=== PATIENT | female | born 1960 | race Caucasian/White ===

== ENCOUNTER 2018-02-04 05:39 | Inpatient (IN) ==
[2018-02-04] MEDS ORDERED: Lactated Ringers 1,000 ML PRIMARY IV ONE ×2 (05:55→09:59)
[2018-02-04] MEDS ORDERED: Clindamycin 900mg (Premix) 900 MG/50 ML BAG IV ONE ×2 (05:55→06:00)
[2018-02-04] MEDS ORDERED: LIDOCAINE W/ SODIUM BICARB 0.5 ML SYR ONE (05:55)
[2018-02-04] MEDS ORDERED: Tranexamic Acid 1,000 MG in Sodium Chloride 0.9% 100 ML IV SCH (06:00)
[2018-02-04] MEDS ORDERED: Lactated Ringers 1,000 ML PRIMARY IV SCH (06:00)
[2018-02-04] MEDS ORDERED: LIDOCAINE W/ SODIUM BICARB 0.5 ML SYR SUBD ONE (06:00)
[2018-02-04] MEDS ORDERED: Ketorolac Inj 30 MG, Morphine Inj 5 MG, BUPivacaine Inj 0.25% PF 150 MG SPLASH ONE ×3 (06:00)
[2018-02-04 06:20] LABS: BILIRUBIN,URINE NEGATIVE (NEG); CLARITY,URINE CLEAR (CLEAR); COLOR,URINE YELLOW (Y); GLUCOSE, URINE (UA) NEGATIVE (NEG); OCCULT BLOOD,URINE NEGATIVE (NEG); PROTEIN,URINE NEGATIVE (NEG); UROBILINOGEN,URINE 0.2 EU/dL (0.2)
[2018-02-04 06:21] LABS: URINE SAMPLE TYPE CLEAN CATCH URINE
[2018-02-04] MEDS ORDERED: BUPivacaine Liposome/PF (Exparel) Inj 20ml vial INFIL ONE (06:53)
[2018-02-04] MEDS ORDERED: Sodium Chloride 0.9% vial 40 ML ONE (06:53)
[2018-02-04] MEDS ORDERED: HEPARIN 10,000 UNIT/1 ML ONE (06:53)
[2018-02-04] MEDS ORDERED: Gentamicin Inj 40 MG/ML VIAL ONE (06:53)
[2018-02-04] MEDS ORDERED: IPRATROPIUM/ALBUTEROL SULFATE 3 ML NEB NEB ONE ×2 (07:05→07:08)
[2018-02-04] MEDS ORDERED: Propofol 1,000 MG/100 ML VIAL IV ONE (07:21)
[2018-02-04] MEDS ORDERED: MIDAZOLAM 5 MG/1 ML ONE (07:24)
[2018-02-04] MEDS ORDERED: MORPHINE SULFATE/PF 10 MG/10 ML AMPULE ONE (07:25)
[2018-02-04] MEDS ORDERED: Sodium Chloride 0.9% 250 ML IV ONE (07:33)
[2018-02-04] MEDS ORDERED: Sodium Chloride 0.9% 2,000 ML ONE (07:33)
[2018-02-04] MEDS ORDERED: TRANEXAMIC ACID 1,000 MG / 10 ML VIAL ONE (07:40)
--- NOTE | 2018-02-04 08:32 | CRNA.PROCE ---
Central Neuraxis Block Placemt - - Type of Block: Subarachnoid Reason for Block: Surgical Moniters Used During Block: EKG, SPO2, NIBP Sedation Used - Enter Amount Used in Comment Field: Midazolam (mg): Yes (3) Skin Prep Used: ChloroPrep Draped: No Skin Infiltration - Enter Amount Used in Comment Field: 1% Xylocaine (mL): Yes ( skinwheal) Spinal Needle Used: 22 Tabitha 80 mm Local Anesthetic - Enter Amount Used in Comment Field: 0.75 % Bupivacaine with Dextrose (ml): Yes (2ml) Additive Used - Enter Amount Used in Comment Field: Preservative Free Morphine ( mg): Yes (150mcg) Bioclusive Dressing Applied: No Anesthesia Time - Other Weight: 63.957 kg Height: 5 ft 5 in Body Mass Index (BMI): 23.4
[2018-02-04] MEDS ORDERED: PROPOFOL 10 MG/1 ML (200 MG/20 ML) VIAL IV ONE (09:44)
[2018-02-04] MEDS ORDERED: KETOROLAC 30 MG/1 ML VIAL ONE (10:45)
--- NOTE | 2018-02-04 10:46 | CRNA.PROGR ---
Anesthesia Recovery Phase I - Post Anesthesia Evaluation Patient's Condition on Arrival in Phase I: Stable Pain Level: 0
--- NOTE | 2018-02-04 10:48 | CRNA.PROGR ---
Anesthesia Time - - Start date: 02/04/18 End date: 02/04/18 - Procedure/Recovery Time Anesthesia : Time In: 07:52 Anesthesia : Time Out: 10:42 Anesthesia : Total Time: 170 - Total Anesthesia Time Total Anesthesia Time (minutes): 170 - Other Weight: 63.957 kg Height: 5 ft 5 in Body Mass Index (BMI): 23.4 Physical Status: P2 Anesthesia Type: Spinal Block
[2018-02-04] MEDS ORDERED: BISACODYL 10 MG SUPPOSITORY RECTAL PRN (11:38)
[2018-02-04] MEDS ORDERED: MAG HYDROX/AL HYDROX/SIMETH 30 ML SUSP PO PRN (11:38)
[2018-02-04] MEDS ORDERED: ACETAMINOPHEN 325 MG TABLET PO PRN (11:38)
[2018-02-04] MEDS ORDERED: ONDANSETRON 4 MG/2 ML VIAL IVP PRN (11:38)
[2018-02-04] MEDS ORDERED: diphenhydrAMINE 25 MG CAPSULE PO PRN (11:38)
[2018-02-04] MEDS ORDERED: MORPHINE SULFATE 2 MG/1 ML IVP PRN (11:38)
[2018-02-04] MEDS ORDERED: BISACODYL 5 MG TABLET PO PRN (11:38)
[2018-02-04] MEDS ORDERED: Prochlorperazine Tab 10 MG TAB PO PRN (11:38)
[2018-02-04] MEDS ORDERED: CALCIUM CARBONATE 500 MG (TUMS) CHEWABLE TABLET PO PRN (11:38)
[2018-02-04] MEDS ORDERED: Ondansetron ODT Tab 8 MG TAB PO PRN (11:38)
--- NOTE | 2018-02-04 13:00 | CONSULT ---
Consult Note - Consult Consult Date: 02/04/18 Reason for Consult: PostOp Consulation : Ortho Requesting Physician: Dr. Fernández Primary Care Provider: Yuli Parkinson - History of Present Illness History of Present Illness: This is a 57 years old female with medical history significant for history of hypertension, fibromyalgia and history of osteonecrosis of the left hip who came into the hospital to have left hip replacement and was done by Dr. Fernández. The hospitalist service were consulted for management of medical issues patient was seen postoperatively she was sleeping but arousable. She is denying complaint now. There is no hip pain, no shortness of breath and no nausea. Past Medical History Medical History: 1. Hypertension. 2. History of fibromyalgia. 3. History of ischemic necrosis of the hip Surgical History: 1. History of right hip replacement. 2. History of bilateral lower carpal tunnel release Family History: Reviewed an Not Pertinent Past Social History: She is a smoker half a pack a day, doesn't drink, smoked marijuana in the past. Tobacco Use: Current Some Day Smoker In the Past 12 Months, Have Used or Abuse Any of the Following Substance: Marijuana Alcohol Use: None Review of Systems - Review of Systems All Systems: Reviewed & No Additional Complaints Except as Stated Medication / Allergies Home Medications: Home Medications 3 Medication Instructions Recorded Confirmed Type gabapentin 300 mg capsule 300 mg PO TID 10/23/17 02/04/18 History lisinopril 20 mg tablet 20 mg PO QDAY 10/23/17 02/04/18 History lorazepam 1 mg tablet 1 mg PO .prn tab 10/23/17 02/04/18 History oxycodone-acetaminophen 10 mg-325 1 tab PO Q6H PRN tab 10/23/17 02/04/18 History mg tablet docusate sodium 100 mg capsule 100 mg PO QDAY 01/22/18 02/04/18 History famotidine 20 mg tablet 20 mg PO QDAY PRN 01/22/18 02/04/18 History Allergies/Adverse Reactions: Allergies 3 Allergy/AdvReac Type Severity Reaction Status Date / Time hydromorphone [From Dilaudid] AdvReac DYSPHORIA Verified 02/04/18 11:49 Penicillins AdvReac NOT Verified 02/04/18 11:49 APPLICABLE Exam - Vitals Vital Signs: Vital Signs Temperature 97.0 F Temperature Source Temporal Artery Scan Pulse Rate [Pulse Oximeter] 65 Pulse Rate 62 Respiratory Rate 16 Blood Pressure [Left Arm] 134/73 Blood Pressure 128/75 Pulse Ox 98 Oxygen Flow Rate 2 Oxygen Delivery Method Nasal Cannula Height 5 ft 5 in Weight 141 lb - General General Appearance: No Acute Distress, Cooperative - Head Head Exam: Normal Inspection - Eye Eye Exam: POSITIVE: Normal Appearance - ENT ENT Exam: POSITIVE: Normal Exam - Neck Neck Exam: Normal Inspection - Respiratory Respiratory Exam: POSITIVE: Clear to Auscultation - Bilaterally - Cardiovascular Cardiovascular Exam: POSITIVE: RRR - GI/Abdominal GI/Abdominal Exam: POSITIVE: Normal Bowel Sounds, Non Tender, Non Distended, Soft, No Organomegaly - Rectal Rectal Exam: POSITIVE: Deferred - External Exam: POSITIVE: Deferred Exam: POSITIVE: Deferred - Extremities Additional Extremities Exam Details: Dressing applied left hip. No edema. - Back Back Exam: POSITIVE: Normal Inspection - Neurological Neurological Exam: POSITIVE: Alert, Oriented x 3, CN II-XII Intact - Psychiatric Psychiatric Exam: POSITIVE: Normal Affect Assessment and Plan - Patient Problems (1) Status post left hip replacement Current Visit: Yes Status: Acute Comment: Pain medications were written by Dr. Fernández. For DVT prophylaxis he put her on aspirin. He consulted PT and OT. Code(s): Z96.642 - Presence of left artificial hip joint (2) Hypertension Current Visit: Yes Status: Acute Comment: She took her lisinopril today we'll see what her blood pressure tomorrow and then will decide about restarting it. Code(s): I10 - Essential (primary) hypertension (3) Fibromyalgia Current Visit: Yes Status: Acute Comment: She is on gabapentin continue Code(s): M79.7 - Fibromyalgia
--- NOTE | 2018-02-04 13:16 | DI ---
XR HIP COMPLETE MIN 2VW U/L,02/04/2018 10:36 AM: Clinical History: Left total hip arthroplasty for avascular necrosis. Previous Exam: None at this facility. Findings: A single frontal radiograph of the pelvis is obtained as well as a frontal radiograph of the left hip , and demonstrates postsurgical changes consistent with bilateral total hip arthroplasty. There is al so a crosstable lateral view identified. There are skin gris overlying the left hip. There is also a THEE drain in good position. There is a Rivera catheter in good position. Impression: Status post left total hip arthroplasty. No evidence of fracture.
[2018-02-04] MEDS: GABAPENTIN 300 MG CAPSULE PO SCH ×3 (13:49→20:23)
[2018-02-04] MEDS: oxyCODONE/APAP 10/325 Tab 1 EACH TAB PO PRN ×3 (14:32→19:32)
[2018-02-04] MEDS: Clindamycin 900mg (Premix) 900 MG/50 ML BAG IV SCH ×2 (14:32→19:31)
--- NOTE | 2018-02-04 15:48 | ORTHO.OP ---
- - -: See Dictated Operative Report Procedure Codes - Hip Procedures Primary Hip Procedure: 06212 : ANDRES (Taisha CAMPBELL assisted)
--- NOTE | 2018-02-04 15:50 | ORTHO.PROG ---
Last Taken Vital Signs: Vital Signs - Last Taken Temperature 97.1 F 02/04/18 14:45 Pulse Rate 63 02/04/18 14:45 Respiratory Rate 16 02/04/18 14:45 Blood Pressure 108/63 02/04/18 14:45 Pulse Ox 97 02/04/18 14:45 Subjective: Patient denies any significant pain Objective: Laboratory Results 02/04/18 02/04/18 Range/Units 06:02 06:40 Ur Collection Type Clean catch urine Urine Color Yellow (Y) Urine Clarity Clear (CLEAR) Urine pH 7.0 (5.0-8.5) Ur Specific [place] 1.015 (1.005-1.030) Urine Protein Negative (NEG) mg/dl Urine Glucose (UA) Negative (NEG) mg/dL Urine Ketones Negative (NEG) Urine Occult Blood Negative (NEG) Urine Nitrate Negative (NEG) Urine Bilirubin Negative (NEG) Urine Urobilinogen 0.2 (0.2) EU/dL Ur Leukocyte Esterase Negative (NEG) Blood Type A POSITIVE Antibody Screen Negative Crossmatch See Detail Vital Signs (24 hrs) Temp Pulse Pulse Pulse Resp BP BP 02/04/18 14:45 97.1 F 63 16 108/63 02/04/18 13:50 66 16 100/62 02/04/18 12:30 97 14 103/74 02/04/18 12:15 97.1 F 63 14 108/64 02/04/18 12:00 97.0 F 65 16 134/73 02/04/18 11:39 64 14 02/04/18 11:33 97.1 F 64 16 131/79 02/04/18 11:15 62 10 L 128/75 02/04/18 11:10 58 L 11 L 131/76 02/04/18 11:05 62 11 L 122/79 02/04/18 11:00 65 12 117/74 02/04/18 10:55 59 L 12 111/69 02/04/18 10:50 60 12 123/72 02/04/18 10:45 61 10 L 129/80 02/04/18 10:40 96.8 F 65 10 L 117/78 02/04/18 07:19 97.8 F 83 18 144/90 02/04/18 07:12 70 18 02/04/18 07:11 68 18 Pulse Ox 02/04/18 14:45 97 02/04/18 13:50 95 02/04/18 12:30 97 02/04/18 12:15 98 02/04/18 12:00 98 02/04/18 11:39 02/04/18 11:33 99 02/04/18 11:15 99 02/04/18 11:10 99 02/04/18 11:05 100 02/04/18 11:00 99 02/04/18 10:55 100 02/04/18 10:50 99 02/04/18 10:45 99 02/04/18 10:40 97 02/04/18 07:19 89 02/04/18 07:12 91 02/04/18 07:11 91 Intake and Output - 8hrs 02/03/18 02/04/18 02/04/18 02/04/18 21:59 05:59 13:59 21:59 Intake: IV 1200 / 1200 Output: Output, Drainage Amount 20 / 20 left hip 20 / 20 Output, Urine Amount 250 / 250 Output, Post Indwelling 100 / 100 Catheter Insertion Output, Estimated Blood Loss 125 / 125 Amount Other: Percent Meal Consumed Lunch patient just admitted from PACU Drains Hemovac left hip Hemovac Number of Voids 1 Weight 63.957 kg Weight Measurement Method Standing Scale Examination shows that the dressings are in place they are dry she has no significant swelling. She has good motor and sensory exam in the left lower extremity as well as right lower extremity. Assessment: Left anterior total hip replacement doing well Plan: Pain control Deep vein thromboses prophylaxis with aspirin and pneumatic sequential devices Physical therapy and occupational therapy
[2018-02-04] MEDS: DOCUSATE 100 MG CAPSULE PO SCH (20:22)
[2018-02-04] MEDS: Lactated Ringers 1,000 ML PRIMARY IV SCH (22:46)
[2018-02-05] MEDS: oxyCODONE/APAP 10/325 Tab 1 EACH TAB PO PRN ×5 (02:07→22:49)
[2018-02-05] MEDS: Clindamycin 900mg (Premix) 900 MG/50 ML BAG IV SCH (02:08)
[2018-02-05] MEDS: KETOROLAC 15 MG/1 ML VIAL IVP PRN ×2 (02:12→23:34)
[2018-02-05 05:01] LABS: Hematocrit [HCT] 31.4 % (37.0-47.0); MEAN CORPUSCULAR HEMOGLOBIN 31.3 PG (27-31); MEAN CORPUSCULAR HGB CONC 31.8 g/dL (33-37); MEAN CORPUSCULAR VOLUME 98.1 FL (81-99); MEAN PLATELET VOLUME 10.1 FL (7.4-12.2); RED BLOOD COUNT 3.2 10^6/uL (4.20-5.40)
[2018-02-05 05:13] LABS: BLOOD UREA NITROGEN 19 mg/dL (7-22); BUN/CREATININE RATIO 21.11 (6-20)
--- NOTE | 2018-02-05 07:44 | ORTHO.PROG ---
Last Taken Vital Signs: Vital Signs - Last Taken Temperature 98.6 F 02/05/18 06:51 Pulse Rate 88 02/05/18 06:51 Respiratory Rate 18 02/05/18 06:51 Blood Pressure 125/91 02/05/18 06:51 Pulse Ox 92 02/05/18 06:51 Subjective: Patient doing well pain is reasonably well-controlled she is on chronic narcotic therapy and has not taken any IV medication. Objective: Patient leg with no significant swelling bruising or ecchymosis motor and sensory exam looks good the drain seems to be working on the negative pressure device the deep drain only had 20 mL I will this was discontinued and the was some oozing from the site dressings were applied. No calf, popliteal, thigh pain or discomfort no adductor hiatus pain. Laboratory Results 02/04/18 02/05/18 02/05/18 Range/Units 06:40 04:24 04:24 WBC 9.04 (4.8-10.8) 10^3/uL RBC 3.20 L (4.20-5.40) 10^6/uL Hgb 10.0 L (12.0-16.0) g/dL Hct 31.4 L (37.0-47.0) % MCV 98.1 (81-99) FL MCH 31.3 H (27-31) PG MCHC 31.8 L (33-37) g/dL RDW Std Deviation 49.2 (39-50) fL RDW Coeff of Grant 14.3 (11.5-14.5) % Plt Count 160 (140-350) 10*3/uL MPV 10.1 (7.4-12.2) FL Sodium 140 (135-145) meq/L Potassium 4.4 (3.8-5.2) meq/L Chloride 101 (98-112) meq/L Carbon Dioxide 27 (23-33) meq/L Anion Gap 12 (5-20) BUN 19 (7-22) mg/dL Creatinine 0.9 (0.50-1.20) mg/dL Estimated GFR > 60 (>60 ml/min/1.73m(2)) BUN/Creatinine Ratio 21.11 H (6-20) Glucose 125 H (78-110) mg/dL Calculated Osmolality 292.0 (267-292) mOsm/kg Calcium 7.9 L (8.7-10.7) mg/dL Blood Type A POSITIVE Antibody Screen Negative Crossmatch See Detail Intake and Output - 8hrs 02/04/18 02/04/18 02/05/18 02/05/18 13:59 21:59 05:59 13:59 Intake: IV 1200 / 1200 450 / 450 Intake Oral Amount 540 / 540 500 / 500 Dinner 300 / 300 Output: Output, Drainage Amount 20 / 20 left hip 20 / 20 Output, Urine Amount 250 / 250 Output, Post Indwelling 100 / 100 Catheter Insertion Output, Estimated Blood Loss 125 / 125 Amount Other: Percent Meal Consumed Dinner 75% Lunch patient just admitted from PACU Drains Hemovac left hip Hemovac Number of Voids 1 Weight 63.957 kg Weight Measurement Method Standing Scale Vital Signs (24 hrs) Temp Pulse Pulse Pulse Resp BP BP 02/05/18 06:51 98.6 F 88 18 125/91 02/05/18 05:29 02/05/18 04:25 98.0 F 79 16 120/68 02/04/18 23:54 97.2 F 75 20 101/57 02/04/18 20:30 97.3 F 81 20 92/60 02/04/18 19:00 64 68 02/04/18 16:47 97.8 F 68 16 103/66 02/04/18 14:45 97.1 F 63 16 108/63 02/04/18 13:50 66 16 100/62 02/04/18 12:30 97 14 103/74 02/04/18 12:15 97.1 F 63 14 108/64 02/04/18 12:00 97.0 F 65 16 134/73 02/04/18 11:39 64 14 02/04/18 11:33 97.1 F 64 16 131/79 02/04/18 11:15 62 10 L 128/75 02/04/18 11:10 58 L 11 L 131/76 02/04/18 11:05 62 11 L 122/79 02/04/18 11:00 65 12 117/74 02/04/18 10:55 59 L 12 111/69 02/04/18 10:50 60 12 123/72 02/04/18 10:45 61 10 L 129/80 02/04/18 10:40 96.8 F 65 10 L 117/78 Pulse Ox 02/05/18 06:51 92 02/05/18 05:29 93 02/05/18 04:25 94 02/04/18 23:54 95 02/04/18 20:30 94 02/04/18 19:00 02/04/18 16:47 98 02/04/18 14:45 97 02/04/18 13:50 95 02/04/18 12:30 97 02/04/18 12:15 98 02/04/18 12:00 98 02/04/18 11:39 02/04/18 11:33 99 02/04/18 11:15 99 02/04/18 11:10 99 02/04/18 11:05 100 02/04/18 11:00 99 02/04/18 10:55 100 02/04/18 10:50 99 02/04/18 10:45 99 02/04/18 10:40 97 Assessment: Left total hip replacement doing well Anemia Plan: Patient will work with physical therapy and occupational therapy. Pain control with oral medications DVT prophylaxis with aspirin and pneumatic sequential devices.
[2018-02-05] MEDS: Lactated Ringers 1,000 ML PRIMARY IV SCH (07:53)
--- NOTE | 2018-02-05 07:57 | PDOC(PROG) ---
Date and Time of Service: 02/05/2018 7:52 AM Interval History: Subjective Patient is denying complaint. No significant hip pain. No shortness of breath and no nausea. Objective : Data - Labs CBC and BMP: 02/05/18 04:24 02/05/18 04:24 Objective : Exam - General General Appearance: No Acute Distress, Cooperative - Head Head Exam: Normal Inspection - Eye Eye Exam: Normal Appearance - ENT ENT Exam: Normal Exam - Neck Neck Exam: Normal Inspection - Respiratory Respiratory Exam: Clear to Auscultation - Bilaterally - Cardiovascular Cardiovascular Exam: RRR - GI/Abdominal GI/Abdominal Exam: Normal Bowel Sounds, Non Tender, Non Distended, Soft, No Organomegaly - Rectal Rectal Exam: Deferred - External Exam: Deferred Exam: Deferred - Extremities Extremities Exam: Normal Inspection Additional Extremities Exam Details: Dressing applied to the left hip. - Neurological Neurological Exam: Alert, Oriented x 3, CN II-XII Intact, No Facial Droop, Speech Intact / Clear, Moves All Extremities Equally - Psychiatric Psychiatric Exam: Normal Affect Assessment and Plan - Patient Problems (1) Status post left hip replacement Current Visit: Yes Status: Acute Comment: Continue PT and OT. She is on aspirin for DVT prophylaxis Code(s): Z96.642 - Presence of left artificial hip joint (2) Hypertension Current Visit: Yes Status: Acute Comment: We'll see what her blood pressure during the day and then will decide about restarting her lisinopril. Code(s): I10 - Essential (primary) hypertension (3) Fibromyalgia Current Visit: Yes Status: Acute Comment: Continue Neurontin. Code(s): M79.7 - Fibromyalgia
[2018-02-05] MEDS: ASPIRIN 325 MG EC TABLET PO SCH ×2 (08:11→20:36)
[2018-02-05] MEDS: GABAPENTIN 300 MG CAPSULE PO SCH ×3 (08:11→20:36)
[2018-02-05] MEDS: DOCUSATE 100 MG CAPSULE PO SCH ×2 (08:11→20:36)
--- NOTE | 2018-02-05 10:31 | PT.PROG ---
Progress Note Progress Note: S: Pt reports 8/10 pain but "feels really good" being out of bed and walking. Reports no lightheadedness or dizziness. O: Tx consisted of AROM and functional activity; knee extension 2x10, PF/DF 2x10 , standing marches in place 2x10. Pt was transferred from mat table to seated edge of table and from STS with CGA x 1, FWW, and no v/c. Pt ambulated back to 3rd floor room with CGA x1, FWW, and no v/c. Pt transferred into chair with CGA x1 and minimal v/c. Pt was not on O2 during tx. O2 saturation in sitting was taken after walking back to room and reached 92% after coughing a couple times. A: Pt doing well and moving easily with minimal cuing. Pt still slightly unstable during walking and transferring and requires FWW and CGA x1 due to pain and surgery. P: Continue with POC
--- NOTE | 2018-02-05 14:25 | CRNA.PROGR ---
Anesthesia Note - Progress Notes Anesthesia Progress Note: Post Anesthesia Note Pt is dressed and lying comfortably in bed. She has been up to PT this morning and has been getting up to the restroom. She states that her pain is well under control with the oral pain medications. Although she states she does not have much of an appetite, she believes it is related to fatigue and denies N/V. Her current VS are stable. Vital Signs - Last Taken Temperature 98.7 F 02/05/18 13:00 Pulse Rate 94 02/05/18 13:00 Respiratory Rate 20 02/05/18 13:00 Blood Pressure 182/86 02/05/18 13:00 Pulse Ox 90 02/05/18 13:00
--- NOTE | 2018-02-05 15:02 | PTI REPORT ---
Thank you for the referral of Kaylene SanManishaOksana. She was seen on 02/04/18 for an inpatient evaluation status post total hip arthroplasty. SUBJECTIVE: The patient is a 57-year-old female. The patient reports no pain, lightheadedness, or dizziness. The patient lives in a one story home with her and 16-year-old son who will be there after discharge. She states she has four stairs to enter home with a railing on both sides. She reports difficulty walking with walker and difficulty performing ADLs due to pain and weakness of hip prior to surgery. PAST MEDICAL HISTORY: Past medical history can be found in the patient's medical record. OBJECTIVE FINDINGS: General observations: The patient is alert and oriented. She is on oxygen, has an IV and hemovac. Blood pressure at rest in supine was 103/66. Bed mobility: The patient transferred from supine to edge of bed with moderate assistance x2 and standard walker. Blood pressure in seated was 105/64. Oxygen saturation was at 93%. The patient was transferred back to bed supine with mod assist x2. Transfers: The patient transferred from edge of bed to standing with moderate assistance x2 and standard walker. In standing, blood pressure went to 103/71 and oxygen saturation was at 95%. ASSESSMENT: Problem List: Difficulty transferring and standing due to ANDRES Short-Term Goals: To be met by discharge from inpatient: Patient will demonstrate safe and independent use of standard walker during stairs, ambulation, and transfers. Long-Term Goals: To be met following discharge from inpatient: Patient will be seen by outpatient physical therapy. TREATMENT PLAN: Patient will be seen B.I.D during the week and one time per day over the weekend as an inpatient for functional activity, transfers, ambulation, and gait training. INITIAL TREATMENT: Treatment today consisted of the initial evaluation followed by functional activity. Dictated by: ADORE Valenzuela Supervised by: NIMA Pollack
--- NOTE | 2018-02-05 15:17 | OTI REPORT ---
Thank you for the referral of Kaylene Nathan. She was seen on 02/05/18 for an occupational therapy inpatient evaluation status post left total hip arthroplasty. SUBJECTIVE: The patient is a 57-year-old female who underwent a left total hip arthroplasty on 02/04/2018. The patient reports she lives in [place] with her son and . She does have four steps to get into her home, but no steps inside that she will need to use. She does have a tub, but she has a tub bench as well as a high rise toilet seat. The patient did have a right total hip arthroplasty two years ago, so she is ready for this process. PAST MEDICAL HISTORY: Past medical history can be found in the patient's medical record. OBJECTIVE FINDINGS: General observations: The patient was in bed upon the therapist's arrival. Bed mobility: The patient was able to complete bed mobility with mod independence. Activities of daily living: The patient required education with the use of a sock aide and lead qa analyst but was able to don lower extremity socks and pants with contact guard assist when standing. The patient completed upper extremity dressing with independence. Transfers: The patient was able to complete a sit to stand transfer with contact guard assist only. Ambulation: The patient was able to ambulate to the sink and complete grooming tasks while standing. She was able to transfer into a wheelchair with contact guard assist only. Strength/Range of motion: The patient demonstrates good shoulder range of motion with strength of 4/5. ASSESSMENT: At this time the patient is completing ADLs with about 5% assist, just for education of the equipment. The patient would benefit from one more OT session to reinforce the use of the equipment when getting dressed. Occupational Therapy Goals: To be met by discharge from inpatient: Patient will be seen for education on adaptive equipment in order to return home safely and independently. TREATMENT PLAN: We will see the patient one more time to increase ADLs to mod independence with adaptive equipment and then she will be discharged. INITIAL TREATMENT: Treatment today consisted of the initial evaluation. The patient was able to transfer into a wheelchair with contact guard assist only. The patient was brought downstairs for PT services. SAMY
--- NOTE | 2018-02-05 16:46 | PT.PROG ---
Progress Note Progress Note: S. Patient stated that she is feeling much better. O. Patient ambulated 175 feet to the therapy gym where she had heat to her hip then performed seated exercises in the form of; heel slides, quad sets, ankle pumps, short arc quads, seated marches long arc quads, and sit to stands all x 10. Patient then performed box step ups with a #2 box then ambulated 175 feet back to her room where she was left at the edge of bed. A. Patient tolerated therapy well, she was fatigued by the end of therapy, she required min assist with transfers. Patient would continue to benefit from skilled therapy to increase endurance and strength. P. continue POC.
[2018-02-06 00:12] VITALS: RESP 20
[2018-02-06] MEDS: oxyCODONE/APAP 10/325 Tab 1 EACH TAB PO PRN ×4 (04:21→16:53)
[2018-02-06 05:33] LABS: Hematocrit [HCT] 34.4 % (37.0-47.0); Hemoglobin [HGB] 10.9 g/dL (12.0-16.0); MEAN CORPUSCULAR HEMOGLOBIN 30.5 PG (27-31); MEAN CORPUSCULAR HGB CONC 31.7 g/dL (33-37); MEAN CORPUSCULAR VOLUME 96.4 FL (81-99); MEAN PLATELET VOLUME 10.2 FL (7.4-12.2); RED BLOOD COUNT 3.57 10^6/uL (4.20-5.40)
[2018-02-06 05:34] LABS: BLOOD UREA NITROGEN 13 mg/dL (7-22); BUN/CREATININE RATIO 16.25 (6-20)
[2018-02-06] MEDS: KETOROLAC 15 MG/1 ML VIAL IVP PRN ×2 (08:44→15:11)
[2018-02-06] MEDS: GABAPENTIN 300 MG CAPSULE PO SCH ×2 (08:45→15:11)
[2018-02-06] MEDS: DOCUSATE 100 MG CAPSULE PO SCH (08:45)
[2018-02-06] MEDS: ASPIRIN 325 MG EC TABLET PO SCH (08:46)
[2018-02-06] MEDS ORDERED: LISINOPRIL 20 MG TABLET PO SCH (09:00)
--- NOTE | 2018-02-06 09:17 | ORTHO.PROG ---
Last Taken Vital Signs: Vital Signs - Last Taken Temperature 97.2 F 02/06/18 08:04 Pulse Rate 97 02/06/18 08:04 Respiratory Rate 20 02/06/18 08:04 Blood Pressure 131/79 02/06/18 08:04 Pulse Ox 90 02/06/18 08:04 Subjective: Patient notes to be doing well at the current time, good pain control Objective: Examination shows the patient is dressed sitting up no active issues she can move around quite well her sensory exam is intact her motor examination also was intact her closed incision negative pressure dressing is in place. There is no active drainage from this. She does not have any significant distal swelling or edema. There is no calf, popliteal or adductor hiatus or thigh pain. Laboratory Results 02/06/18 02/06/18 Range/Units 04:33 04:33 WBC 8.71 (4.8-10.8) 10^3/uL RBC 3.57 L (4.20-5.40) 10^6/uL Hgb 10.9 L (12.0-16.0) g/dL Hct 34.4 L (37.0-47.0) % MCV 96.4 (81-99) FL MCH 30.5 (27-31) PG MCHC 31.7 L (33-37) g/dL RDW Std Deviation 47.3 (39-50) fL RDW Coeff of Grant 14.2 (11.5-14.5) % Plt Count 182 (140-350) 10*3/uL MPV 10.2 (7.4-12.2) FL Sodium 136 (135-145) meq/L Potassium 4.1 (3.8-5.2) meq/L Chloride 99 (98-112) meq/L Carbon Dioxide 30 (23-33) meq/L Anion Gap 7 (5-20) BUN 13 (7-22) mg/dL Creatinine 0.8 (0.50-1.20) mg/dL Estimated GFR > 60 (>60 ml/min/1.73m(2)) BUN/Creatinine Ratio 16.25 (6-20) Glucose 104 (78-110) mg/dL Calculated Osmolality 281.0 (267-292) mOsm/kg Calcium 8.4 L (8.7-10.7) mg/dL Vital Signs (24 hrs) Temp Pulse Resp BP Pulse Ox 02/06/18 08:04 97.2 F 97 20 131/79 90 02/06/18 07:00 97 02/06/18 04:58 97.6 F 98 158/86 92 02/06/18 00:10 98 F 106 H 20 168/84 90 02/05/18 19:52 99.2 F 98 17 169/90 90 02/05/18 16:10 99.6 F 02/05/18 16:00 100.6 F H 18 156/91 92 02/05/18 13:00 98.7 F 94 20 182/86 90 Assessment: Left total hip replacement Anemia Plan: We will continue with current plan of physical therapy and occupational therapy , patient will continue with DVT prophylaxis with aspirin and pneumatic sequential devices. We will continue with pain control and assess how she does today and hopefully come up with a plan for potential discharge over the next several days.
--- NOTE | 2018-02-06 12:58 | PDOC(PROG) ---
Date and Time of Service: 02/06/2018 12:57 PM Interval History: Subjective Patient feels better. Pain seemed to be controlled though she did need to IV Toradol. Denying other symptoms. Objective : Data - Labs CBC and BMP: 02/06/18 04:33 02/06/18 04:33 Objective : Exam - General General Appearance: No Acute Distress, Cooperative - Head Head Exam: Normal Inspection - Eye Eye Exam: Normal Appearance - ENT ENT Exam: Normal Exam - Neck Neck Exam: Normal Inspection - Respiratory Respiratory Exam: Clear to Auscultation - Bilaterally - Cardiovascular Cardiovascular Exam: RRR - GI/Abdominal GI/Abdominal Exam: Normal Bowel Sounds, Non Tender, Non Distended, Soft, No Organomegaly - Rectal Rectal Exam: Deferred - External Exam: Deferred - Extremities Additional Extremities Exam Details: No edema in the leg. Dressing applied to the left hip - Back Back Exam: Normal Inspection - Neurological Neurological Exam: Alert, Oriented x 3, CN II-XII Intact, Speech Intact / Clear - Psychiatric Psychiatric Exam: Normal Affect Assessment and Plan - Patient Problems (1) Status post left hip replacement Current Visit: Yes Status: Acute Comment: Continue PT and OT. Per my discussion with PT they will reevaluate this afternoon then will decide whether she is ready for discharge or not. Code(s): Z96.642 - Presence of left artificial hip joint (2) Hypertension Current Visit: Yes Status: Acute Comment: we Put her back on her lisinopril Code(s): I10 - Essential (primary) hypertension (3) Fibromyalgia Current Visit: Yes Status: Acute Comment: Continue Neurontin Code(s): M79.7 - Fibromyalgia
--- NOTE | 2018-02-06 15:59 | DCSUMMARY ---
Hospitalization Summary Admit Date: 02/04/2018 Discharge Date: 02/06/18 Hospital Course: Discharge diagnoses 1. Status post left hip replacement 2. Hypertension 3. History of fibromyalgia Hospital course This is a 57 years old female with medical history significant for history of hypertension, fibromyalgia and history of avascular necrosis of the left hip who came into the hospital to have surgery and had left hip replacement done by Dr. Fernández. The hospitalist service were consulted for management of medical issues. Patient postoperative course was uneventful. She did have some mild anemia secondary to postoperative blood loss but did not need transfusion. Patient on the day of discharge was evaluated by physical therapy and it was felt that she is ready to be discharged so she was discharged home to continue follow-up with Dr. Fernández and her primary as an outpatient Laboratory Results 02/06/18 02/06/18 Range/Units 04:33 04:33 WBC 8.71 (4.8-10.8) 10^3/uL RBC 3.57 L (4.20-5.40) 10^6/uL Hgb 10.9 L (12.0-16.0) g/dL Hct 34.4 L (37.0-47.0) % MCV 96.4 (81-99) FL MCH 30.5 (27-31) PG MCHC 31.7 L (33-37) g/dL RDW Std Deviation 47.3 (39-50) fL RDW Coeff of Grant 14.2 (11.5-14.5) % Plt Count 182 (140-350) 10*3/uL MPV 10.2 (7.4-12.2) FL Sodium 136 (135-145) meq/L Potassium 4.1 (3.8-5.2) meq/L Chloride 99 (98-112) meq/L Carbon Dioxide 30 (23-33) meq/L Anion Gap 7 (5-20) BUN 13 (7-22) mg/dL Creatinine 0.8 (0.50-1.20) mg/dL Estimated GFR > 60 (>60 ml/min/1.73m(2)) BUN/Creatinine Ratio 16.25 (6-20) Glucose 104 (78-110) mg/dL Calculated Osmolality 281.0 (267-292) mOsm/kg Calcium 8.4 L (8.7-10.7) mg/dL Discharge instruction Diet regular Activity as tolerated Medications Current Medication(s) 3 Medication Instructions Recorded Confirmed Type gabapentin 300 mg capsule 300 mg PO TID 10/23/17 02/04/18 History lisinopril 20 mg tablet 20 mg PO QDAY 10/23/17 02/04/18 History lorazepam 1 mg tablet 1 mg PO .prn tab 10/23/17 02/04/18 History docusate sodium 100 mg capsule 100 mg PO QDAY 01/22/18 02/04/18 History famotidine 20 mg tablet 20 mg PO QDAY PRN 01/22/18 02/04/18 History Aspirin EC 325 mg PO BID #60 tab 02/06/18 Rx oxyCODONE/APAP 10/325 Tab 1 - 2 ea PO Q4H PRN #50 tab 02/06/18 Rx [Percocet 10/325 Tab] Follow-up with PCP and Dr. Fernández 1-2 weeks Condition at discharge was stable for discharge Exam - Vitals Vital Signs: Vital Signs Temperature 97.8 F Temperature Source Temporal Artery Scan Pulse Rate [Apical] 64 Pulse Rate [Pulse Oximeter] 86 Pulse Rate 62 Respiratory Rate 20 Blood Pressure [Left Arm] 159/90 Blood Pressure 128/75 Pulse Ox 93 Oxygen Flow Rate 1 Oxygen Delivery Method Room Air Height 5 ft 5 in Weight 144 lb 9.6 oz Patient Problems - Patient Problem List (1) Status post left hip replacement Status: Acute Code(s): Z96.642 - Presence of left artificial hip joint Category: Medical (2) Hypertension Status: Acute Code(s): I10 - Essential (primary) hypertension Category: Medical (3) Fibromyalgia Status: Acute Code(s): M79.7 - Fibromyalgia Category: Medical
--- NOTE | 2018-02-06 16:13 | OT.PROG ---
Progress Note Progress Note: Occupational Therapy S: Pt. reports that she is doing well today. Reports pain of 6.5 out of 10 in her hip. O: Pt. was seen at 8:25 for skilled occupational therapy session with a focus on ADL tasks. Pt. demonstrated the ability to complete LE dressing and upper extremity dressing independently while sitting EOB. Pt. also completed toileting task with modified independence for transfer, pants management, and toilet hygiene. A: Pt. has demonstrated the ability to complete basic ADL tasks with modified independence with minimal verbal cues. Pt. may benefit from outpatient physical therapy upon discharge. P: D/c to home with adaptive equipment as needed. HOWARD Loja/Casey
--- NOTE | 2018-02-06 16:24 | PT.PROG ---
Progress Note Progress Note: S. Patient stated that she is feeling good this morning, she reports that she might be ready to go home. O. Patient ambulated 175 feet to the therapy gym where she had heat to her hip then performed supine exercises in the form of; heel slides, quad sets, ankle pumps, short arc quads all x 15, sit to stands x 10, box step ups with #2 box, and 5 minutes on the nu-step. Patient then ambulated 175 feet back to her room where she was left at the edge of bed with alarm and call light. A. Patient tolerated therapy well this morning, she is making gains with strength and mobility. She would benefit from outpatient therapy at this time. Patient will perform stair training this afternoon. P. Continue POC.
--- NOTE | 2018-02-06 16:32 | PT.PROG ---
Progress Note Progress Note: S. Patient stated that she is a little sore this afternoon, however she feels that she is ready to go home. O. patient ambulated 175 feet to the therapy gym where she had heat performed, heel slides, quad sets, ankle pumps, short arc quads, seated long arc quads, sit to stands all x 15. Patient ascended and descended 4 stairs then ambulated 175 feet back to her room where she was left with alarm and call light. A. Patient tolerated therapy well today, she continues to make gains with strength and mobility, she is slightly impulsive and requires frequent reminders to keep her walker with her until she goes to sit, Patient would benefit from outpatient therapy at this time. Patient has met inpatient goals at this time. P. Continue POC.
[2018-02-06 16:34] VITALS: BP 165/99; TEMP 97.3; O2SAT 92
== END 2018-02-06 17:12 | disposition home or self-care (01) | DRG 470 ==
LOC: OPS 05:39 → MED/SURG 11:27
PROVIDERS: ADMIT Orthopaedic Surgery; ATTEND Orthopaedic Surgery